=== PATIENT | male | born 1980 | race Caucasian/White ===

== ENCOUNTER 2016-11-24 22:07 | Inpatient (IN) | payer MEDICAID ==
--- NOTE | ~2016-11-24 | PA ---
Unit #: [id number] #: [id number] Patient: KAT WEBB [id number] [facility] [address] [place] [address] [id number] I MR#: [id number] NAME: KAT WEBB. ROOM: P214 Age: 36 Sex: M Admission Date: 11/24/2016 : 1980 Date of Assessment: 11/25/2016 Attending Physician: José Miguel Whitmore M.D. Admitting Physician: José Miguel Whitmore M.D. Primary Care Physician: Primary Care Physician No PSYCHIATRIC ASSESSMENT DATE OF SERVICE 11/25/2016. IDENTIFYING DATA Mr. Webb is a 36-year-old single white male, who is a resident of [place], [place], and is known to us from previous encounter and was transferred to us from [facility]. CHIEF COMPLAINT "I overdosed on heroin." HISTORY OF PRESENT ILLNESS Mr. Webb is a 36-year-old white male with long history of mood disorder and substance abuse and dependence, who is known to me from previous multiple encounters and apparently was taken to [facility] via ambulance after he was found overdosed from heroin in the car at a local gas station. He stated that he was not trying to kill himself and that he is not suicidal and stated that he only used a baby line today; however, he stated that he just got out of the shelter last week after serving 30 days and he detoxed from methadone while in the shelter and he reports that his fiance and his sister were fearful for his safety and they both report that he makes daily statements that he is going to kill himself. The patient's fiance stated that yesterday he threatened to kill her if he found out she had slept with someone while he was locked up and she further reports that he tried to hang himself while in shelter. The patient does have a long history of mood disorder. On evaluation by me, he stated that he was gone and was in [place] and was staying sober and then he got back to [place] around July and he ended up relapsing and he stated that he was on Suboxone before and he made a biggest mistake in his own words as he describes it by switching it to methadone and from there it went to heroin and that he ended up relapsing and then has been using drugs regularly. He also reports that he has been struggling with depression and that Celexa which was being prescribed before did not help and that he would like the medication to be switched to a different one; however, he denies any current suicidal ideations, intent, or plan. SUBSTANCE ABUSE HISTORY The patient reports opioids, particularly heroin to be his drug of choice and has been using up to half a gram of IV heroin a day. PAST PSYCHIATRIC HISTORY The patient has had a history of multiple inpatient psychiatric and Unit #: [id number] #: [id number] Patient: [facility] WEBB chemical dependency treatment. Review of the medical records indicate that he was on Celexa, but currently he is not active in any treatment program, is not seeing a psychiatrist, and is not taking any psychotropic medications. PAST MEDICAL HISTORY No acute or chronic medical illnesses. ALLERGIES No known medication allergies. FAMILY HISTORY The patient denies any history of mental illness or substance abuse in the family. DEVELOPMENTAL HISTORY The patient denies any history of learning disabilities or developmental delays and also denies any history of physical or sexual abuse during childhood. PERSONAL AND SOCIAL HISTORY A 36-year-old white male, who reports that he lives at home with his fiance and he is heterosexual and is sexually active, though he is currently unemployed and reports having poor social support system. He also has ongoing legal issues and just served his 30-day sentence in shelter. MENTAL STATUS EXAMINATION Young white male, who was casually dressed with a fair personal hygiene, appears to be in no acute distress or discomfort. He was awake and alert on interaction with intact orientation to time, place, and person. His mood was anxious and depressed with a congruent affect. His speech was slow and goal directed. His thought processes were disorganized with some looseness of associations and flight of ideas. His insight and judgment remain significantly impaired. DIAGNOSTIC IMPRESSION Psychiatric: Major depressive disorder, recurrent, moderate, without psychotic features and opioid dependence, moderate, in acute withdrawals. Medical: None. Stressors: Moderate psychosocial stressors. TREATMENT PLAN 1. The patient has presented with a history of mood disorder and substance abuse and has been decompensating and will need inpatient hospitalization for safety and stabilization. We will start him back on his home medications and we will adjust the medications and monitor response. 2. Supportive therapy was provided to the patient. 3. Safe, structured, and nourishing environment will be provided. ESTIMATED LENGTH OF STAY 5 to 7 days. ABILITY TO HELP SELF Limited. WILLINGNESS TO HELP SELF The patient appears to be willing to help self. Unit #: [id number] #: [id number] Patient: KAT WEBB STRENGTHS 1. Communicative. 2. Cooperative. PROBLEMS 1. Chronic dysphoric symptoms. 2. Chronic chemical dependency. 3. Poor social support system. DISCHARGE CRITERIA This will be contingent upon the patient's ability to show resolution of his depression and anxiety as well as his ability to stay safe to himself, particularly after discharge from the hospital. Dictated by... Mesfin Garcia/emily TD: 11/25/2016 15:21 JOB #: [id number] PSYCHIATRIC ASSESSMENT Page 1 of 1 X José Miguel Whitmore MD X PSYCHIATRIC ASSESSMENT
--- NOTE | ~2016-11-24 | DS ---
Unit #: [id number] #: [id number] Patient: KAT WEBB [id number] [facility] [address] [place] [address] [id number] I MR#: [id number] NAME: KAT WEBB ROOM: P214 Age: 36 Sex: M Admission Date: 11/24/2016 : 1980 Discharge Date: 11/29/2016 Attending Physician: José Miguel Whitmore M.D. Primary Care Physician: Primary Care Physician No DISCHARGE SUMMARY IDENTIFYING DATA Mr. Webb is a 36-year-old white male, who is a resident of [place], [place], and is known to us from previous encounter and was transferred to us from [facility]. DISCHARGE DIAGNOSES Psychiatric: Major depressive disorder, recurrent, moderate, without psychotic features; opioid dependence, moderate, in acute withdrawals. Medical: None. Stressors: Moderate psychosocial stressors. HISTORY OF PRESENT ILLNESS Please see initial psychiatric evaluation for details. PAST PSYCHIATRIC HISTORY Please see initial psychiatric evaluation for details. PAST MEDICAL HISTORY Please see initial psychiatric evaluation for details. HOSPITAL COURSE The patient was admitted to the adult psychiatric and chemical dependency unit at [facility] and was oriented to the hospital environment. Routine p.r.n. medications were initiated, and he was started on the detox protocol and was also started on Effexor and trazodone to help with depression and anxiety, and was closely monitored. He was taking the medications regularly and was tolerating them fairly well and was able to show a decent and therapeutic response and as such, it was decided he will be discharged home and will continue treatment on an outpatient basis. DISCHARGE MEDICATIONS Effexor XR 75 mg at bedtime for depression and trazodone 100 mg at bedtime for sleep. DISCHARGE CONDITION Stable. PROGNOSIS Fair. Dictated by... José Miguel Whitmore M.D. Unit #: [id number] #: [id number] Patient: KAT WEBB IAA/modl TD: 11/29/2016 06:50 JOB #: [id number] DISCHARGE SUMMARY Page 1 of 1 X José Miguel Whitmore MD DISCHARGE SUMMARY
--- NOTE | ~2016-11-24 | HP ---
Unit #: [id number] #: [id number] Patient: KAT WEBB [id number] [place] [address] [id number] I MR#: [id number] NAME: KAT WEBB. ROOM: P214 Age: 36 Sex: M Admission Date: 11/24/2016 : 1980 Attending Physician: José Miguel Whitmore M.D. Admitting Physician: José Miguel Whitmore M.D. Primary Care Physician: Primary Care Physician No HISTORY AND PHYSICAL HISTORY OF PRESENT ILLNESS The patient is a 36-year-old admitted to [address] [place] [address] on 11/24/2016 for suicidal ideations and to detox from heroin PAST MEDICAL HISTORY Significant for heroin abuse and nicotine dependence. PAST SURGICAL HISTORY The patient denies. SOCIAL HISTORY The patient was recently incarcerated. He currently lives with his fiancee. He smokes one pack of cigarettes daily and uses one-half gram of heroin per day. FAMILY MEDICAL HISTORY Noncontributory. ALLERGIES No known drug allergies. CURRENT MEDICATIONS The patient is not on any home medications. REVIEW OF SYSTEMS CONSTITUTIONAL: No fever or chills. HEENT: Denies any sore throat, ear pain or runny nose. CARDIOVASCULAR: Denies chest pain, irregular heart rhythm or palpitations. CHEST: Denies shortness of breath or cough. No hemoptysis. GASTROINTESTINAL: Denies nausea, vomiting, diarrhea or chronic constipation. ENDOCRINE: Denies history of increased thirst or urination. No recent significant weight loss or gain. GENITOURINARY: Denies dysuria, frequency, or hematuria. SKIN: Denies any rashes. HEMATOLOGIC: Denies history of increased bleeding or bruising. MUSCULOSKELETAL: Denies any hot, swollen joints. No generalized muscle pain. NEUROLOGIC: Denies problems with vision or speech. No frequent, severe headaches. No numbness, tingling or weakness in any extremities. Denies loss of bladder or bowel control. PHYSICAL EXAM Unit #: [id number] #: [id number] Patient: KAT WEBB GENERAL: He is awake, alert and oriented in no acute distress. VITAL SIGNS: Temperature 98.0, heart rate 111, respiration 16, blood pressure 141/91. HEIGHT: 5'8". WEIGHT: 177 pounds. SKIN: Warm and dry without rash or lesion. HEENT: Normocephalic. TMs not viewed. Oral and nasal passages clear. Conjunctivae clear. PERRLA. EOMs intact. NECK: Supple without lymphadenopathy or thyromegaly. HEART: Regular rate and rhythm without murmur. LUNGS: Clear. ABDOMEN: Soft, nontender. : Not done. EXTREMITIES: No evidence of cyanosis, clubbing or edema. Moves all without focal deficit. NEUROLOGICAL: Grossly within normal limits. Cranial Nerves: II: Visual chapin are intact. III, IV AND : Extraocular movements are intact. Pupils are equal, round and reactive to light. V: Facial sensation is grossly normal. VII: Facial movements and expression are normal. VIII: Auditory acuity grossly intact. IX, X: Uvula is midline. Phonation is normal. XI: Patient shrugs shoulders and turns head normally. XII: Tongue protrudes in the midline. Sensory and Motor Function: Sensory and motor sensation is grossly normal. Motor: moves all extremities well. IMPRESSION 1. Psychiatric admission. 2. Heroin dependence. 3. Nicotine dependence. RECOMMENDATIONS Psychiatric per psychiatrist. MEDICAL: No contraindication to participate in facility activities. MEDICAL PROGNOSIS Good. MEDICAL CONDITION Stable. Dictated by... Alma Rosa Gross/rufino TD: 11/25/2016 20:57 JOB #: [id number] Unit #: [id number] #: [id number] Patient: KAT WEBB HISTORY AND PHYSICAL Page 1 of 1 X RAMONA GREGORY APRN HISTORY AND PHYSICAL
--- NOTE | ~2016-11-24 | PN ---
Unit #: [id number] #: [id number] Patient: KAT SANCHEZ [id number] [facility] [address] [place] [address] [id number] I MR#: [id number] NAME: KAT SANCHEZ. ROOM: P214 Age: 36 Sex: M Admission Date: 11/24/2016 : 1980 Attending Physician: José Miguel Whitmore M.D. Admitting Physician: José Miguel Whitmore M.D. Primary Care Physician: Primary Care Physician No [facility] PROGRESS NOTES DATE November 26, 2016 DISCUSSION Mr. Sanchez is a 36-year-old white male, with mood disorder, and substance abuse, who was seen today and chart was reviewed and the case was discussed with the staff. He remains anxious, withdrawn, depressed, and rather seclusive to himself with blunted affect and minimal interaction, and reports feelings of hopelessness and helplessness. Meanwhile, he has been taking the medications and tolerating them fairly well with no reported side effects. MENTAL STATUS EXAMINATION Young white male, who was casually dressed with fair personal hygiene and appears to be in no acute distress or discomfort. He was awake and alert on interaction with intact orientation. His mood is anxious with a congruent affect. His speech is slow and goal-directed. He denies any suicidal or homicidal ideations, and also denies any auditory or visual hallucinations. His insight and judgment remain slightly impaired. TREATMENT PLAN 1. We will continue him on his current medications and treatment protocol, and will monitor his response to the medications, and make further adjustments as needed. 2. We will continue to followup. Dictated by... José Miguel Whitmore M.D. DOE/mary TD: 11/28/2016 06:13 JOB #: [id number] Unit #: [id number] #: [id number] Patient: KAT SANCHEZ [facility] PROGRESS NOTES Page 1 of 1 X José Miguel Whitmore MD X PROGRESS NOTE
--- NOTE | ~2016-11-24 | PN ---
Unit #: [id number] #: [id number] Patient: KAT SANCHEZ [id number] [facility] [address] [place] [address] [id number] I MR#: [id number] NAME: KAT SANCHEZ. ROOM: P214 Age: 36 Sex: M Admission Date: 11/24/2016 : 1980 Attending Physician: José Miguel Whitmore M.D. Admitting Physician: José Miguel Whitmore M.D. Primary Care Physician: Primary Care Physician Trixie WELLSCE PROGRESS NOTES DATE OF SERVICE 11/27/2016 DISCUSSION Mr. Sanchez is a 36-year-old white male with substance abuse and mood disorder who was seen today. Chart was reviewed and case was discussed with the staff. She has been anxious, withdrawn, depressed, and rather seclusive to himself. Meanwhile, he has been cooperative with treatment recommendations and has been taking the medications and tolerating them fairly well. MENTAL STATUS EXAMINATION Young white male who is casually dressed with fair personal hygiene, appears to be in no acute distress or discomfort. The patient was awake and alert on interaction with intact orientation. His mood is anxious with a congruent affect. He denies any suicidal or homicidal ideations. His insight and judgment remain slightly impaired. TREATMENT PLAN 1. We will continue him on his current medications and treatment protocol. We will monitor his response to the medications and make further adjustments as needed. 2. We will continue to follow up. Dictated by... José Miguel Whitmore M.D. IAA/bzg TD: 11/28/2016 11:22 JOB #: [id number] Unit #: [id number] #: [id number] Patient: KAT SANCHEZ [facility] PROGRESS NOTES Page 1 of 1 X José Miguel Whitmore MD PROGRESS NOTE
--- NOTE | ~2016-11-24 | PN ---
Unit #: [id number] #: [id number] Patient: KAT SANCHEZ [id number] [facility] [address] [place] [address] [id number] I MR#: [id number] NAME: KAT SANCHEZ. ROOM: P214 Age: 36 Sex: M Admission Date: 11/24/2016 : 1980 Attending Physician: José Miguel Whitmore M.D. Admitting Physician: José Miguel Whitmore M.D. Primary Care Physician: Primary Care Physician Trixie SCHUMACHER PROGRESS NOTES DATE 11/28/2016 DISCUSSION Mr. Sanchez is a 36-year-old white male who was seen today and chart was reviewed. Case was discussed with the staff. He has been anxious, withdrawn though has not shown any agitation, irritability and has been cooperative with treatment recommendations as he has been taking medications and tolerating them fairly well with no reported side effects. MENTAL STATUS EXAMINATION Young white male who was casually dressed with fair personal hygiene and appears to be in no acute distress or discomfort. He was awake and alert with impaired attention and concentration. His mood was anxious with congruent affect. His speech is slow and goal-directed. He denies any suicidal or homicidal ideations and also denies any auditory or visual hallucinations. His insight and judgement remains slightly impaired. TREATMENT PLAN 1. Will continue his current treatment protocol. Will monitor his response and make further adjustments as needed. 2. Will continue to follow up. Dictated by... Mesfin Garcia/mellissa TD: 11/29/2016 18:55 JOB #: [id number] Unit #: [id number] #: [id number] Patient: KAT SANCHEZ [facility] PROGRESS NOTES Page 1 of 1 X José Miguel Whitmore MD PROGRESS NOTE
[2016-11-25 11:43] LABS: URINE APPEARANCE TURBID; URINE BILIRUBIN NEG (NEG); URINE BLOOD NEG (NEG); URINE COLOR YELLOW; URINE GLUCOSE NEG (NEG); URINE KETONE NEG (NEG); URINE LEUKOCYTE ESTERASE NEG (NEG); URINE NITRATE NEG (NEG); URINE PH 5.5 (5-8); URINE PROTEIN NEG (NEG); URINE SPECIFIC GRAVITY 1.026 (1.003-1.035); URINE UROBILINOGEN 0.2 MG/DL (NEG)
[2016-11-25 11:58] LABS: THYROID STIMULATING HORMONE 2.09 uIU/ml (0.34-5.60)
[2016-11-25 12:05] LABS: FREE THYROXIN (T4) 1.05 ng/dL (0.58-1.64)
== END 2016-11-29 09:10 | DRG 885 ==
LOC: P2S 22:07
PROVIDERS: Psychiatry & Neurology Psychiatry
PROC: HZ2ZZZZ Detoxification Services for Substance Abuse Treatment (ICD-10-PCS; principal; 2016-11-24)
DX: F33.1 Major depressive disorder, recurrent, moderate (principal); F11.23 Opioid dependence with withdrawal; F17.210 Nicotine dependence, cigarettes, uncomplicated
CPT/HCPCS: 81003; 84439; 84443; 86592